=== PATIENT | female | born 1995 | race Caucasian/White ===

== ENCOUNTER 2020-01-14 19:18 | Emergency (ER) | payer OTHER ==
[2020-01-14 20:09] VITALS: BP 105/66
--- NOTE | 2020-01-14 21:50 | ER Document Report ---
HPI - HPI Time Seen by Provider: 01/14/20 21:43 Notes: CHIEF COMPLAINT: Left hand injury HPI: 24-year-old female presenting for injury to the base of the left thumb and the index finger. Was walking her dog on a leash but it saw another dog and took off pulling on her hand with the leash. ROS: See HPI - all other systems were reviewed and are otherwise negative Constitutional: no fever Integumentary: no rash, positive bruising Allergy: no hives Musculoskeletal: + extremity pain or swelling Neurological: no numbness/tingling, no weakness MEDICATIONS: I agree with the patient medications as charted by the RN. ALLERGIES: I agree with the allergies as charted by the RN. PAST MEDICAL HISTORY/PAST SURGICAL HISTORY: Reviewed and agree as charted by RN. SOCIAL HISTORY: Reviewed and agree as charted by RN. FAMILY HISTORY: No significant familial comorbid conditions directly related to patient complaint EXAM: Reviewed vital signs as charted by RN. CONSTITUTIONAL: Alert and oriented and responds appropriately to questions. Well-appearing; well-nourished HEAD: Normocephalic; atraumatic EYES: Conjunctivae clear, sclerae non-icteric ENT: normal nose; no rhinorrhea; moist mucous membranes NECK: Supple without meningismus CARD: symmetric distal pulses RESP: Normal chest excursion without splinting or tachypnea ABD/GI: non-distended BACK: The back appears normal EXT: Normal ROM in all joints; bruising to the thenar surface of the left hand at the base of the thumb with mild tenderness over the proximal phalange of the left thumb. Mild tenderness on palpation of the proximal phalanx of the left index finger. Patient is able to flex and extend the left index finger at the MCP, PIP, DIP joint space region. Patient also able to flex and extend the thumb somewhat limited secondary to pain at the DIP and MCP region. Sensation is intact in the distal tip of the thumb and fingers with capillary refill less than 3 seconds SKIN: Normal color for age and race; warm; dry; good turgor; no acute lesions noted NEURO: Moves all extremities equally; Motor and sensory function intact PSYCH: The patient's mood and manner are appropriate. Grooming and personal hygiene are appropriate. MDM: 24-year-old female with injury to the left thumb and index finger tonight. Will obtain x-ray for fracture if negative anticipate discharge home with symptomatic treatment orthopedic referral Past Medical History - Social History Smoking Status: Unknown if Ever Smoked Family History: Reviewed & Not Pertinent Course - Re-evaluation Re-evalutation: 01/14/20 22:18 X-ray does not show evidence of fracture will discharge home to follow-up with orthopedics - Vital Signs Vital signs: Temp Pulse Resp BP Pulse Ox 98.0 F 77 16 105/66 100 01/14/20 20:08 01/14/20 20:08 01/14/20 20:08 01/14/20 20:08 01/14/20 20:08 Procedures - Immobilization Left Proximal Thumb Time completed: 22:19 Pre-Proc Neuro Vasc Exam: Normal Immobilizer type: Jorge wrap Performed by: PCT Post-Proc Neuro Vasc Exam: Normal, Unchanged from pre-exam Alignment checked and good: Yes Discharge - Discharge Clinical Impression: Left thumb sprain Qualifiers: Encounter type: initial encounter Sprain of finger site: metacarpophalangeal joint Qualified Code(s): S63.642A - Sprain of metacarpophalangeal joint of left thumb, initial encounter Condition: Stable Disposition: HOME, SELF-CARE Instructions: Sprained Thumb ([facility]) Additional Instructions: 1. jorge wrap for comfort 2. Motrin/Tylenol for pain 3. ice the thumb/hand three times daily for swelling for 10 minutes at a time, do not place ice directly on skin 4. follow up with orthopedics for further evaluation and treatment, call for appt. Referrals: KWABENA PARRA JR, [ACTIVE PROVISIONAL STAFF] - Follow up as needed
--- NOTE | 2020-01-14 22:11 | RADIOLOGY REPORT (SQ) ---
EXAM DESCRIPTION: XR HAND 3 OR MORE VIEWS COMPLETED DATE/TME: 01/14/2020 21:44 CLINICAL HISTORY: 24 years, Female, thumb injury COMPARISON: None. NUMBER OF VIEWS: 3 TECHNIQUE: Frontal, oblique, and lateral radiographs were obtained LIMITATIONS: None. FINDINGS: Visualized osseous structures are normal in appearance. Joint spaces are well-maintained. No acute fracture or dislocation is evident. IMPRESSION: No acute osseous anomaly. copyright 2010 [email or web address]- All Rights Reserved
== END 2020-01-14 22:00 | disposition home or self-care (01) ==
LOC: ER 19:18
DX: S63.642A Sprain of metacarpophalangeal joint of left thumb, initial encounter (principal); S69.92XA Unspecified injury of left wrist, hand and finger(s), initial encounter; X50.0XXA Overexertion from strenuous movement or load, initial encounter; Y93.K1 Activity, walking an animal
CPT/HCPCS: 99283

== ENCOUNTER 2020-05-19 12:57 | Emergency (ER) | payer OTHER ==
[2020-05-19 13:02] VITALS: BP 113/72
--- NOTE | 2020-05-19 13:18 | ER Document Report ---
ED Medical Screen (RME) - General Chief Complaint: Abdominal Pain Stated Complaint: ABDOMINAL PAIN Time Seen by Provider: 05/19/20 13:14 Primary Care Provider: PEG ATWOOD PA-C [Primary Care Provider] - Follow up as needed Mode of Arrival: Ambulatory Information source: Patient Notes: Patient is a 25-year-old female who is presenting today with irregular ities in her menstrual period. Has had multiple starts and stops this month. Now having increased pain in the pelvic region. Denies fevers and chills. Denies nausea vomiting and diarrhea General: No acute distress, nontoxic Pulmonary no respiratory distress Abdomen nontender, nondistended, no CVA tenderness Musculoskeletal moves all extremities well Neuro no focal deficits I have greeted and performed a rapid initial assessment of this patient. A comprehensive ED assessment and evaluation of the patient, analysis of test results and completion of the medical decision making process will be conducted by additional ED providers. Physical Exam - Vital signs Vitals: Temp Pulse Resp BP Pulse Ox 97.8 F 77 16 113/72 100 05/19/20 13:01 05/19/20 13:01 05/19/20 13:01 05/19/20 13:01 05/19/20 13:01 Course - Vital Signs Vital signs: Temp Pulse Resp BP Pulse Ox 97.8 F 77 16 113/72 100 05/19/20 13:01 05/19/20 13:01 05/19/20 13:01 05/19/20 13:01 05/19/20 13:01 Doctor's Discharge - Discharge Referrals: PEG ATWOOD PA-C [Primary Care Provider] - Follow up as needed
[2020-05-19 13:55] LABS: ABSOLUTE EOSINOPHILS # (AUTO) 0.1 10^3/uL (0.0-0.6); ABSOLUTE LYMPHOCYTES (AUTO) 1.5 10^3/uL (0.5-4.7); ABSOLUTE MONOCYTES (AUTO) 0.3 10^3/uL (0.1-1.4); BASOPHILS % (AUTO) 0.6 % (0-2); EOSINOPHILS % (AUTO) 1.5 % (0-6); HEMATOCRIT 37.8 % (36.0-47.0); HEMOGLOBIN 13.1 g/dL (12.0-15.5); LYMPHOCYTES % (AUTO) 38.8 % (13-45); MEAN CORPUSCULAR HEMOGLOBIN 31.6 pg (27.0-33.4); MEAN CORPUSCULAR HGB CONC 34.6 g/dL (32.0-36.0); MEAN CORPUSCULAR VOLUME 92 fl (80-97); MONOCYTES % (AUTO) 8.1 % (3-13); PLATELET COUNT 152 10^3/uL (150-450); RED BLOOD COUNT 4.13 10^6/uL (3.72-5.28); RED CELL DISTRIBUTION WIDTH 12.5 % (11.5-14.0); TOTAL CELLS COUNTED % (AUTO) 100 %; WHITE BLOOD COUNT 3.9 10^3/uL (4.0-10.5)
[2020-05-19 14:14] LABS: ALBUMIN 4.7 g/dL (3.5-5.0); ALKALINE PHOSPHATASE 38 U/L (38-126); ANION GAP 10 (5-19); ASPARTATE AMINO TRANSFERASE 21 U/L (14-36); BILIRUBIN,TOTAL 0.7 mg/dL (0.2-1.3); BLOOD UREA NITROGEN 14 mg/dL (7-20); CARBON DIOXIDE 25 mmol/L (22-30); CHLORIDE 103 mmol/L (98-107); GLUCOSE 109 mg/dL (75-110); POTASSIUM 4.4 mmol/L (3.6-5.0); TOTAL PROTEIN 7.7 g/dL (6.3-8.2)
--- NOTE | 2020-05-19 15:04 | RADIOLOGY REPORT (SQ) ---
EXAM DESCRIPTION: U/S NON OB PEL TV W/DOPPLER IMAGES COMPLETED DATE/TIME: 05/19/2020 2:54 pm REASON FOR STUDY: pelvic pain-heavy bleeding COMPARISON: None. TECHNIQUE: Dynamic and static grayscale images acquired of the pelvis via transvaginal approach and recorded on PACS. Additional selected color Doppler and spectral images recorded. LIMITATIONS: Overlying bowel gas. FINDINGS: UTERUS: Contour normal. No mass. ENDOMETRIAL STRIPE: No focal or generalized thickening. No masses. CERVIX: No nabothian cysts. RIGHT OVARY AND DOPPLER: Normal size. No worrisome masses. Normal arterial vascular flow without evid ence for torsion. LEFT OVARY AND DOPPLER: Normal size. No worrisome masses. Normal arterial vascular flow without evide nce for torsion. FREE FLUID: None noted. OTHER: No other significant finding. MEASUREMENTS: UTERUS: 6.0 x 5.0 x 3.0 cm. ENDOMETRIAL STRIPE: 2.0 mm. RIGHT OVARY: 3.0 x 2.0 x 2.0 cm. LEFT OVARY: 4.0 x 2.0 x 2.0 cm. IMPRESSION: NORMAL TRANSVAGINAL PELVIC ULTRASOUND. TECHNICAL DOCUMENTATION: JOB ID: [id number] 2010 [employer]- All Rights Reserved Rev-11/28 Reading location - IP/workstation name: [email or web address]
--- NOTE | 2020-05-19 15:17 | ER Document Report ---
ED General - General Chief Complaint: Abdominal Pain Stated Complaint: ABDOMINAL PAIN Time Seen by Provider: 05/19/20 13:14 Primary Care Provider: PEG ATWOOD PA-C [Primary Care Provider] - Follow up in 1 week Mode of Arrival: Ambulatory - [facility] Notes: 25-year-old female to the emergency department with abnormal vaginal bleeding over the past several weeks. She states she is about a week late for her. But then started to have bleeding. She states that it is been off and on predominantly spotting. She states 1 day she was heavier and she did go through 1 pad. She states typically she is pretty regular on her periods and it has a heavier flow. Typically going through about 3 pads a day. She states that she and her significant other have been trying to get for about a year. They have not been successful. She is never been before. She is not o n any control. She has not been on control for about 4 years. She states that she is also been having pelvic cramping. She states that she is not really sure why she is cramping so badly if she is not bleeding as much. She is mostly concerned that she may be . She denies any other symptoms. Denies any nausea, vomiting, fevers, chills, chest pain, shortness of breath. She does state that her first menses was when she was age 18. - Related Data Allergies/Adverse Reactions: No Known Allergies Allergy (Verified 05/19/20 13:18) Past Medical History - General Information source: Patient - Social History Smoking Status: Never Smoker Chew tobacco use (# tins/day): No Drug Abuse: None Family History: Reviewed & Not Pertinent Review of Systems - Review of Systems Constitutional: denies: Chills, Fever EENT: No symptoms reported Cardiovascular: denies: Chest pain, Palpitations, Heart racing, Orthopnea, Dyspnea, Syncope, Dizziness, Lightheaded Respiratory: denies: Cough, Short of breath Gastrointestinal: Abdominal pain. denies: Diarrhea, Nausea, Vomiting Genitourinary: denies: Burning, Dysuria, Frequency, Flank pain Female Genitourinary: Vaginal bleeding Musculoskeletal: No symptoms reported Skin: No symptoms reported Hematologic/Lymphatic: No symptoms reported Neurological/Psychological: No symptoms reported -: Yes All other systems reviewed and negative Physical Exam - Vital signs Vitals: Temp Pulse Resp BP Pulse Ox 97.8 F 77 16 113/72 100 05/19/20 13:01 05/19/20 13:01 05/19/20 13:01 05/19/20 13:01 05/19/20 13:01 Interpretation: Normal - General General appearance: Appears well, Alert In distress: None - HEENT Head: Normocephalic, Atraumatic Eyes: Normal Pupils: PERRL - Respiratory Respiratory status: No respiratory distress Chest status: Nontender Breath sounds: Normal. No: Rales, Rhonchi, Wheezing Chest palpation: Normal - Cardiovascular Rhythm: Regular Heart sounds: Normal auscultation Murmur: No - Abdominal Inspection: Normal Distension: No distension Bowel sounds: Normal Tenderness: Nontender. No: McBurney's point, Mcmahan's sign, Guarding, Rebound Organomegaly: No organomegaly - Back Back: Normal, Nontender. No: CVA tenderness - Neurological Neuro grossly intact: Yes Cognition: Normal Orientation: AAOx4 Barry Coma Scale Eye Opening: Spontaneous Barry Coma Scale Verbal: Oriented Esteban Coma Scale Motor: Obeys Commands Barry Coma Scale Total: 15 Speech: Normal Cranial nerves: Normal Cerebellar coordination: Normal Motor strength normal: LUE, RUE, LLE, RLE Additional motor exam normals: Equal quad stayer Sensory: Normal - Psychological Associated symptoms: Normal affect, Normal mood - Skin Skin Temperature: Warm Skin Moisture: Dry Skin Color: Normal Course - Re-evaluation Re-evalutation: 05/19/20 15:52 Impression: Abnormal vaginal bleeding. Negative test and ultrasound is reassuring. Patient and her have been trying to get for over a year. They had some initial fertility testing done about a year ago but never found out about it. We will give him information fertility clinic at [facility]. - Vital Signs Vital signs: Temp Pulse Resp BP Pulse Ox 97.8 F 77 16 113/72 100 05/19/20 13:01 05/19/20 13:01 05/19/20 13:01 05/19/20 13:01 05/19/20 13:01 - Laboratory Result Diagrams: 05/19/20 13:27 05/19/20 13:27 Laboratory results interpreted by me: 05/19/20 05/19/20 13:27 15:43 WBC 3.9 L Urine Blood SMALL H - Diagnostic Test Radiology reviewed: Image reviewed, Reports reviewed Discharge - Discharge Clinical Impression: Abnormal uterine bleeding, Pelvic cramping, Negative test Condition: Stable Disposition: HOME, SELF-CARE Additional Instructions: Follow-up with [facility] fertility clinic. [address], [place] [address] Contact the [facility] office who did your initial fertility testing so you can get the results to take to [facility]. Return if worsening symptoms. Forms: Return to Work Referrals: PEG ATWOOD PA-C [Primary Care Provider] - Follow up in 1 week
[2020-05-19 16:25] LABS: APPEARANCE,URINE CLEAR; BILIRUBIN,URINE NEGATIVE (NEGATIVE); COLOR,URINE STRAW; GLUCOSE, URINE NEGATIVE (NEGATIVE); KETONES,URINE NEGATIVE (NEGATIVE); PROTEIN,URINE NEGATIVE (NEGATIVE); URINE SPECIFIC GRAVITY 1.005; UROBILINOGEN,URINE NEGATIVE mg/dL (<2.0)
== END 2020-05-19 17:05 | disposition home or self-care (01) ==
LOC: ER 12:57
DX: N93.8 Other specified abnormal uterine and vaginal bleeding (principal); R10.9 Unspecified abdominal pain; Z32.02 Encounter for pregnancy test, result negative
CPT/HCPCS: 36415; 76830; 80053; 81001; 84702; 85025; 93976; 99284